=== PATIENT | female | born 1990 | race Hispanic/Latino ===

== ENCOUNTER 2017-07-13 07:22 | Outpatient (CLI) | payer OTHER ==
--- NOTE | 2017-07-13 09:24 | ULT ---
RENAL SONOGRAM: Date: 07-13-17 History: Acute right flank pain that started in June. FINDINGS: Right kidney measures 9.4 cm x 3.3 cm with the left kidney measures 10.4 x 4.8 cm. There is no eviden ce of hydronephrosis, renal mass, or renal calculus visualized. No renal cortical thinning is present . There is mild prominence of the medullary pyramids, nonspecific. There is mild prominence of the le ft renal pelvis without caliceal dilatation. The urinary bladder is grossly normal in appearance. The pre void urinary bladder volume is 47 ml wit h post void urinary bladder volume of 20 ml. The visualized right hepatic lobe appears echogenic in appearance which is suggestive of fatty infilt ration of the liver. IMPRESSION: 1. Normal appearing bilateral kidneys without evidence of hydronephrosis. 2. Mild fatty infiltration of the visualized right hepatic lobe. POS: [facility]
== END 2017-07-13 07:23 | disposition home or self-care (01) ==
LOC: MADULT 07:22
PROVIDERS: ATTEND Family Medicine
DX: R10.9 Unspecified abdominal pain (principal); K76.0 Fatty (change of) liver, not elsewhere classified
CPT/HCPCS: 76770

== ENCOUNTER 2018-08-06 16:54 | Emergency (ER) | payer OTHER ==
[~2018-08-06 16:54] MED LIST: Iopamidol 370 76% 125 ML VIAL FS ONE
[2018-08-06] MEDS ORDERED: Sodium Chloride 0.9% 1,000 ML ONE ×2 (17:34→19:46)
[2018-08-06 18:00] LABS: #Basophils 0.1 thou/uL (0.0-0.2); #Lymphocytes 0.7 thou/uL (1.20-3.40); #Monocytes 0.6 thou/uL (0.11-0.59); #Neutrophils 4.5 thou/uL (1.40-6.50); %Eosinophils 0.4 % (0.0-10.0); %Lymphocytes 11.4 % (21.0-51.0); %Monocytes 10.4 % (0.0-10.0); %Neutrophils 75.8 % (42.0-75.0); Hemoglobin 12.3 g/dL (12.0-16.0); Mean Corpuscular HGB CONC 33.9 g/dL (32.0-36.0); Mean Corpuscular Hemoglobin 32.2 pg (27.0-31.0); Mean Corpuscular Volume 95.2 fL (78.0-98.0); Mean Platelet Volume 9.1 fL (7.4-10.4); Platelet Count 158 thou/uL (130-400); RBC Distribution Width 11.5 % (11.5-14.5)
[2018-08-06 18:11] LABS: ALT (SGPT) 30 U/L (8-55); AST (SGOT) 32 U/L (5-34); Albumin 3.2 g/dL (3.5-5.0); Alkaline Phosphatase 265 U/L (40-150); Anion Gap 14 mmol/L (10-20); BUN (Urea Nitrogen) 8 mg/dL (7.0-18.7); Bilirubin, Total 0.4 mg/dL (0.2-1.2); Calc. Creatinine Clearance 0 mL/min (70-130); Calcium 8.4 mg/dL (7.8-10.44); Carbon Dioxide 20 mmol/L (22-29); Chloride 107 mmol/L (98-107); Estimated GFR-MDRD 87; Globulin 2.9 g/dL (2.4-3.5); Glucose 85 mg/dL (70-105); Potassium 4.1 mmol/L (3.5-5.1); Protein, Total 6.1 g/dL (6.0-8.3); Sodium 137 mmol/L (136-145)
--- NOTE | 2018-08-06 21:39 | CT ---
CTA THORAX WITH CONTRAST: (Computed Tomographic Angiography, chest(noncoronary) with contrast material, and image postprocessin g) (PE protocol) HISTORY: 28-year-old female in third trimester of presents with chest pain, tachycardia, an d elevated D-Dimer. TECHNIQUE: IV injection of iodinated contrast: Administered Scan acquisition timing attempted to coincide with iodinated contrast bolus reaching maximal density in pulmonary arteries. 3D MIP reconstructions. FINDINGS: The images of the lower lung zones are degrade by patient breathing motion artifact. There is an approximately 4 x 1.5 x 5.5 cm soft tissue density mass with irregular margins located in the subcutaneous superficial fat of the anterior aspect of the right axilla. Pulmonary thromboembolism: None. Lungs: Clear. Pneumothorax: None. Pleural effusion: None. Thoracic aorta: No aneurysm or dissection. Mediastinum: No lymphadenopathy or other mass. Denae: No lymphadenopathy or other mass. IMPRESSION: 1. No evidence of pulmonary thromboembolism or any other acute intrathoracic findings. 2. Superficially located right axillary mass. This probably represents accessory mammary tissue. Anot her possibility would be a venous malformation. This could be resolved with ultrasound with doppler o n an elective basis. ally POS: [facility]
[2018-08-06] MEDS ORDERED: Acetaminophen 325 MG TAB ONE (21:58)
== END 2018-08-06 23:27 | disposition short-term general hospital (02) ==
LOC: MADERS 16:54
DX: O99.89 Other specified diseases and conditions complicating pregnancy, childbirth and the puerperium (principal); R00.0 Tachycardia, unspecified; Z3A.38 38 weeks gestation of pregnancy
CPT/HCPCS: 71275; 80053; 84484; 85025; 85379; 87804; 93005; 96360; 96361; J7050; Q9967

== ENCOUNTER 2019-01-22 07:39 | Outpatient (CLI) | payer OTHER ==
--- NOTE | 2019-01-22 09:33 | ULT ---
GALLBLADDER ULTRASOUND: INDICATIONS: Right upper abdominal pain. FINDINGS: There is no focal hepatic lesion identified. There is persistent shadowing of the region of the gall bladder, which may be related to wall echo shadow sign from cholelithiasis. This does obscure the ga llbladder from view, thus limiting further assessment. The common duct is normal in caliber, where v isualized, at 3 mm. Brewster sign is reported as negative by the room maid. IMPRESSION: 1. Prominent shadowing at the level of the gallbladder, which may be on the basis of wall echo shado w sign from impacted stones. This does limit visualization of the gallbladder. 2. Normal sized common duct is visualized. POS: [facility]
== END 2019-01-22 07:40 | disposition home or self-care (01) ==
LOC: MADULT 07:39
PROVIDERS: ATTEND Family Medicine
DX: R10.9 Unspecified abdominal pain (principal)
CPT/HCPCS: 76705

== ENCOUNTER 2025-03-24 15:05 | Outpatient (CLI) | payer OTHER ==
[2025-03-24 15:55] LABS: BHCG - Serum POSITIVE (NEGATIVE); Pregs Control Background? CLEAR/WHITE (CLR/WHITE); Pregs Control Bar Appear? YES (CONTROL BAR)
== END 2025-03-24 15:06 | disposition home or self-care (01) ==
LOC: MADLAB 15:05
PROVIDERS: ATTEND Pathology Anatomic Pathology & Clinical Pathology
DX: Z00.00 Encounter for general adult medical examination without abnormal findings (principal)
CPT/HCPCS: 84703

== ENCOUNTER 2025-04-26 08:49 | Emergency (ER) | payer OTHER, SELFPAY ==
[2025-04-26 09:22] LABS: Glucose, Urine (Dipstick) Negative (Negative); Protein, Urine (Dipstick) Negative (Neg-Trace); Specific Gravity, Urine 1.015 (1.005-1.030)
[2025-04-26 09:23] LABS: Leukocyte Small (Negative)
[2025-04-26 09:28] LABS: CAUTI Indications for Culture Dysuria,urgency,freq; RBC/HPF 0-3 HPF (0-3); WBC/HPF 0-3 HPF (0-3)
[2025-04-26 09:29] LABS: Bacteria/HPF Rare-Few HPF (None Seen); Urine Culture Reflex No No
[2025-04-26] MEDS ORDERED: Acetaminophen 325 MG TAB ONE (11:06)
== END 2025-04-26 13:06 | disposition home or self-care (01) ==
LOC: MADERS 08:49
DX: B34.9 Viral infection, unspecified (principal)
CPT/HCPCS: 81001; 87428; 99283; J7030